=== PATIENT | female | born 1970 | race African-American/Black ===

== ENCOUNTER 2016-10-13 08:49 | Emergency (ER) | payer MEDICARE | END 2016-10-13 11:36 | disposition home or self-care (01) | LOC: ER 08:49 | DX: H66.002 Acute suppurative otitis media without spontaneous rupture of ear drum, left ear (principal); F17.210 Nicotine dependence, cigarettes, uncomplicated; J30.2 Other seasonal allergic rhinitis | CPT/HCPCS: 87804; 87880 ==